=== PATIENT | female | born 2005 | race Caucasian/White ===

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

== ENCOUNTER 2024-04-27 13:15 | Outpatient (CLI) | payer OTHER ==
[2024-04-27 18:28] LABS: INFECTIOUS MONONUCLEOSIS NEGATIVE (Negative)
[2024-04-27 23:09] LABS: CHLAMYDIA TRACHOMATIS DNA NEGATIVE (NEGATIVE); NEISSERIA GONORRHOEAE DNA NEGATIVE (NEGATIVE)
[2024-04-27 23:58] LABS: BACTERIAL VAGINOSIS DNA NEGATIVE (NEGATIVE); CANDIDA GLABRATA DNA NEGATIVE (NEGATIVE); CANDIDA GROUP DNA NEGATIVE (NEGATIVE); CANDIDA KRUSEI DNA NEGATIVE (NEGATIVE); TRICHOMONAS VAGINALIS DNA NEGATIVE (NEGATIVE)
== END 2024-04-27 13:30 | disposition home or self-care (01) ==
LOC: LAB.N 13:15
PROVIDERS: ATTEND Physician Assistant Medical
DX: R07.0 Pain in throat (principal); N89.8 Other specified noninflammatory disorders of vagina
CPT/HCPCS: 81514; 86308; 87070; 87491; 87591; 87661

== ENCOUNTER 2024-05-07 08:00 | Outpatient (CLI) | payer OTHER | END 2024-05-07 23:59 | disposition home or self-care (01) | LOC: LAB.N 08:00 | PROVIDERS: ATTEND Physician Assistant Medical | DX: J02.9 Acute pharyngitis, unspecified (principal) | CPT/HCPCS: 81599; 87491; 87591 ==